=== PATIENT | female | born 1995 | race Two or more races ===

== ENCOUNTER 2024-10-27 16:54 | Emergency (ER) | payer OTHER ==
[~2024-10-27] VITALS: Ht 157.5 cm; Wt 115.7 kg
[2024-10-27] MEDS ORDERED: PRENATE ELITE1 EAC2 PO (17:14)
== END 2024-10-27 19:02 | disposition home or self-care (01) ==
LOC: ER 16:54
DX: O99.891 Other specified diseases and conditions complicating pregnancy (principal); Z3A.25 25 weeks gestation of pregnancy

== ENCOUNTER 2025-01-22 14:46 | Outpatient (CLI) | payer OTHER ==
[~2025-01-22 14:46] MED LIST: PRENATE ELITE1 EAC2 PO
[2025-01-22 15:15] VITALS: BP 146/58
== END 2025-01-22 15:30 | disposition home or self-care (01) ==
LOC: NST 14:46
PROVIDERS: ATTEND Obstetrics & Gynecology Gynecology
DX: Z34.83 Encounter for supervision of other normal pregnancy, third trimester (principal)

== ENCOUNTER 2025-01-27 04:17 | Emergency (ER) | payer OTHER ==
[~2025-01-27] VITALS: Ht 157.5 cm; Wt 122.5 kg
[2025-01-27] MEDS ORDERED: ACETAMINOPHEN 500 MG GEL..CAP PO ONE ×2 (05:15→05:16)
== END 2025-01-27 07:29 | disposition home or self-care (01) ==
LOC: ER 04:17
DX: Z34.90 Encounter for supervision of normal pregnancy, unspecified, unspecified trimester (principal); Z3A.38 38 weeks gestation of pregnancy; R07.89 Other chest pain; R51.9 Headache, unspecified

== ENCOUNTER 2025-02-02 08:26 | Inpatient (IN) | payer OTHER ==
[~2025-02-02] VITALS: Ht 157.5 cm; Wt 120.2 kg
[2025-02-02 09:59] LABS: BASO % 0.2 % (0.1-1.2); EOS # 0.13 (0.04-0.54); EOS % 1.2 % (0.7-7.0); LYMPH # 2.66 (1.18-3.74); LYMPH % 23.6 % (19.3-53.1); MEAN PLATELET VOLUME 8.80 fl (9.4-12.4); MONO # 0.58 (0.24-0.82); MONO % 5.1 % (4.7-12.5); NEUT # 7.86 (1.56-6.13); NEUT % 69.5 % (34.0-71.1); RED CELL DISTRIBUTION WIDTH 17.6 % (11.6-14.4)
[2025-02-02 10:19] LABS: COVID-19 AG NEGATIVE (NEGATIVE)
[2025-02-02 10:41] LABS: ALT/SGPT 34.0 U/L (12-78); AST/SGOT 22.0 U/L (15-37); BILIRUBIN TOTAL 0.29 mg/dL (0.3-1.2); BUN CREA RATIO 12.0 (7.0-25.0); CREATININE SERUM 0.42 mg/dL (0.55-1.02); GFR 179.65; GLOBULINA 3.5 G/DL (2.4-3.5); GLUCOSE FASTING 91.0 mg/dL (65-100); OSMOLALITY SERUM 276.0 MOSM/KG (275-295)
[2025-02-02 10:44] LABS: INR < 0.93
[2025-02-04 06:20] VITALS: BP 105/60
[2025-02-04] MEDS ORDERED: CEFAZOLIN SODIUM 1,000 MG VIAL ONE (07:01)
[2025-02-04] MEDS ORDERED: CITRIC ACID/SODIUM CITRATE 30 ML BLIST.PACK PO ONE (07:01)
[2025-02-04] MEDS ORDERED: OXYTOCIN 10 UNITS/ML VIAL ONE (07:22)
[2025-02-04] MEDS ORDERED: ERYTHROMYCIN BASE OPHT 1GM EACH TUBE OP ONE (07:23)
[2025-02-04] MEDS ORDERED: MORPHINE SULFATE 4 MG/ML CARTRIDGE IV PRN (09:15)
[2025-02-04 13:31] VITALS: BP 120/80
[2025-02-04 16:00] VITALS: BP 116/72
[2025-02-05 01:35] VITALS: BP 123/78
[2025-02-05 08:00] VITALS: BP 116/74
[2025-02-05] MEDS ORDERED: SIMETHICONE 125 MG CAPSULE PO SCH (09:00)
[2025-02-05 11:54] LABS: BASO % 0.2 % (0.1-1.2); EOS # 0.13 (0.04-0.54); EOS % 1.0 % (0.7-7.0); LYMPH # 2.36 (1.18-3.74); LYMPH % 18.1 % (19.3-53.1); MEAN PLATELET VOLUME 8.90 fl (9.4-12.4); MONO # 0.67 (0.24-0.82); MONO % 5.1 % (4.7-12.5); NEUT # 9.80 (1.56-6.13); NEUT % 75.1 % (34.0-71.1); RED CELL DISTRIBUTION WIDTH 18.1 % (11.6-14.4)
[2025-02-05 16:05] VITALS: BP 113/74
[2025-02-06] VITALS: BP 119/78
[2025-02-06] MEDS ORDERED: OxyCODONE HCL 5 MG TABLET (ROXICODONE) PO PRN (06:00)
[2025-02-06 09:37] VITALS: BP 117/71
== END 2025-02-06 14:51 | disposition home or self-care (01) | DRG 788 ==
LOC: OB/GYN 02-04 06:00 → O/R 02-04 06:00 → LDR 02-04 07:00 → OB/GYN 02-04 12:38
PROVIDERS: ADMIT Obstetrics & Gynecology; ATTEND Obstetrics & Gynecology
PROC: 4A1HXCZ Monitoring of Products of Conception, Cardiac Rate, External Approach (ICD-10-PCS; 2025-02-04)
PROC: 10D00Z1 Extraction of Products of Conception, Low, Open Approach (ICD-10-PCS; principal; 2025-02-04 07:00)
DX: O34.211 Maternal care for low transverse scar from previous cesarean delivery (principal); Z3A.39 39 weeks gestation of pregnancy; Z37.0 Single live birth

== ENCOUNTER 2025-03-06 12:54 | Emergency (ER) | payer OTHER ==
[~2025-03-06] VITALS: Ht 157.5 cm; Wt 117.9 kg
[2025-03-06 16:40] LABS: BASO % 0.4 % (0.1-1.2); EOS # 1.06 (0.04-0.54); EOS % 9.7 % (0.7-7.0); LYMPH # 3.62 (1.18-3.74); LYMPH % 33.0 % (19.3-53.1); MEAN PLATELET VOLUME 9.20 fl (9.4-12.4); MONO # 0.46 (0.24-0.82); MONO % 4.2 % (4.7-12.5); NEUT # 5.76 (1.56-6.13); NEUT % 52.5 % (34.0-71.1); RED CELL DISTRIBUTION WIDTH 15.7 % (11.6-14.4)
[2025-03-06 16:46] LABS: ERYTHROCYTE SEDIMENTATION RATE 57 mm/hr (0-20)
[2025-03-06 17:14] LABS: URINE APPEARANCE Turbid; URINE BILIRRUBIN Small (NEGATIVE); URINE BLOOD Large; URINE COLOR Red; URINE GLUCOSE Negative (NEGATIVE); URINE KETONE Negative (NEGATIVE); URINE LEUKOCYTE Moderate; URINE NITRATE Positive; URINE UROBILINOGEN 0.2 E.U./dl
[2025-03-06 17:21] LABS: URINE BACTERIA 361.5 uL (0.0-1933); URINE EPITHELIAL CELLS 26.6 uL (0.0-38.8); URINE WBC 91.6 uL (0.0-23.2)
[2025-03-06 17:29] LABS: URINE CAST 0.57 uL (0.0-1.40); URINE PROTEIN 100 (NEGATIVE); URINE RBC > 10558.9 uL (0.0-20.8)
[2025-03-06 18:11] LABS: INR 0.97
[2025-03-06 18:20] LABS: ALT/SGPT 66.0 U/L (12-78); AST/SGOT 29.0 U/L (15-37); BILIRUBIN TOTAL 0.45 mg/dL (0.3-1.2); BUN CREA RATIO 19.0 (7.0-25.0); CREATININE SERUM 0.75 mg/dL (0.55-1.02); GFR 92.01; GLOBULINA 3.7 G/DL (2.4-3.5); GLUCOSE FASTING 102.0 mg/dL (65-100); OSMOLALITY SERUM 288.0 MOSM/KG (275-295)
[2025-03-06] MEDS ORDERED: METHYLERGONOVINE MALEATE 0.2 MG/ML AMPUL IM STA (19:12)
[2025-03-06] MEDS ORDERED: CEFTRIAXONE SODIUM 1,000 MG VIAL IV STA (19:16)
[2025-03-06] MEDS ORDERED: 0.9 % SODIUM CHLORIDE 1,000 ML IV STA (19:16)
[2025-03-06] MEDS ORDERED: IRON325 MG PO (19:45)
[2025-03-06] MEDS ORDERED: CEFTRIAXONE SODIUM 1,000 MG VIAL ONE (21:23)
[2025-03-06] MEDS ORDERED: METHYLERGONOVINE MALEATE 0.2 MG/ML AMPUL ONE (21:24)
== END 2025-03-06 22:02 | disposition home or self-care (01) ==
LOC: ER 12:55
PROVIDERS: Physician Assistant Medical
DX: N93.8 Other specified abnormal uterine and vaginal bleeding (principal); N39.0 Urinary tract infection, site not specified; O72.1 Other immediate postpartum hemorrhage